=== PATIENT | female | born 1965 | race African-American/Black ===

== ENCOUNTER → 2019-11-07 | Day surgery (SDC) | payer OTHER ==
--- NOTE | 2019-11-07 20:22 | OP ---
DATE OF OPERATION: 11/07/2019 PREOPERATIVE DIAGNOSIS: Abnormal mammography. POSTOPERATIVE DIAGNOSIS: Abnormal mammography. PROCEDURE: Left stereotactic needle biopsy with clips . ANESTHESIA: Local. COMPLICATIONS: None. INDICATION: Patient brought to routine screening mammography and noted increasing microcalcifications in the upper outer left breast. A biopsy of this was recommended. Procedure was discussed with all questions answered. PROCEDURE IN DETAIL: The patient was brought to [facility] in [place], laid prone on the OR table. Using the cranial approach, calcifications in the upper outer left breast were identified. A sterile prep was obtained. A target was chosen. There was a positive stroke margin. Using Betadine and 1% lidocaine a 9-gauge Suros device was used to take several cores from this area. Cores showed calcification calcification protocol. A clip was deployed in the area. Hemostasis assured with direct pressure. Steri-Strips were used to close the incision. She tolerated the procedure well and left the breast imaging center in good condition. DANA BUSTAMANTE M.D. [id number]
--- NOTE | 2019-11-09 13:26 | PATH ---
Surgical Pathology Report Patient Name: JELANI LOERA [facility]. Rec. #: [id number] /Age/Gender: 1965 (Age: 54) / F Account: [id number] Location: [facility] Taken: 11/07/2019 Received: 11/07/2019 Reported: 11/09/2019 Physicians: Mona Daly M.D. Specimen(s) Received A: LEFT BREAST SPECIMEN - WITH CALCIFICATIONS B: LEFT BREAST SPECIMEN - WITHOUT CALCIFICATIONS Clinical History Nonpalpable lesion Mammographic findings: Microcalcification, suspicious Final Diagnosis A. BREAST, LEFT, WITH CALCIFICATIONS, STEREOTACTIC CORE BIOPSY: ATYPICAL LOBULAR HYPERPLASIA (ALH) IN A BACKGROUND OF FIBROCYSTIC CHANGES INCLUDING STROMAL FIBROSIS, MICROCYSTS, CYSTIC APOCRINE METAPLASIA, USUAL DUCTAL HYPERPLASIA, AND ASSOCIATED MICROCALCIFICATIONS. B. BREAST, LEFT, WITHOUT CALCIFICATIONS, STEREOTACTIC CORE BIOPSY: ATYPICAL LOBULAR HYPERPLASIA (ALH) IN A BACKGROUND OF FIBROCYSTIC CHANGES INCLUDING STROMAL FIBROSIS, MICROCYSTS, APOCRINE METAPLASIA, USUAL DUCTAL HYPERPLASIA, AND ASSOCIATED MICROCALCIFICATIONS. Comment: Part A and B, Immunohistochemical stains performed at [place], [place] ([id number]) and interpreted at [facility] show E-Cadherin is negative in areas with ALH. Positive and negative controls (internal if applicable) show appropriate results. Electronically Signed Jane Salgado M.D. Gross Description A. Received in formalin labeled "left breast with calcifications," are 9 alfredo-yellow, cylindrical portions of fibroadipose tissue ranging from 0.9-2.7 cm in length and averaging 0.3 cm in diameter. The specimens are submitted in toto in 3 cassettes. B. Received in formalin labeled "left breast without calcification," is a 2.3 cm in length x 0.3 cm in diameter alfredo-yellow, cylindrical portion of fibroadipose tissue. The specimen is submitted in toto in one cassette. Time to formalin fixation: 5 minutes Total formalin fixation time: Approximately 7 hours. /11/07/2019 saudi/11/07/2019
== END | disposition home or self-care (01) ==
LOC: FMAMMOTONE 08:35
PROVIDERS: ATTEND Surgery
PROC: 0HBU3ZX Excision of Left Breast, Percutaneous Approach, Diagnostic (ICD-10-PCS; principal; 2019-11-07)
DX: N60.12 Diffuse cystic mastopathy of left breast (principal); N60.32 Fibrosclerosis of left breast; N60.89 Other benign mammary dysplasias of unspecified breast; N60.82 Other benign mammary dysplasias of left breast; N64.89 Other specified disorders of breast; R92.8 Other abnormal and inconclusive findings on diagnostic imaging of breast
CPT/HCPCS: 19081; 76098-TC-FY; 87899; 88305-TC; A4648

== ENCOUNTER 2019-12-21 06:37 | Day surgery (SDC) | payer OTHER ==
[2019-12-20 15:33] VITALS: BMI 28.8
[2019-12-21] MEDS ORDERED: oxyCODONE HCL 5 MG TABLET PO PRN (08:31)
[2019-12-21] MEDS ORDERED: PROMETHAZINE HCL 25 MG/1 ML VIAL IVPUSH PRN (08:31)
[2019-12-21] MEDS ORDERED: ONDANSETRON 4 MG/2 ML VIAL IVPUSH PRN (08:31)
[2019-12-21] MEDS ORDERED: LACTATED RINGERS SOLUTION 1,000 ML IV SCH (08:45)
[2019-12-21] MEDS ORDERED: LIDOCAINE HCL 1%, 10 MG/ML (20ML VIAL) ONE ×2 (09:07→10:36)
[2019-12-21] MEDS ORDERED: PROPOFOL 20 ML ONE (10:00)
[2019-12-21] MEDS ORDERED: MIDAZOLAM HCL 2 MG/2 ML SINGLE DOSE VIAL ONE (10:00)
[2019-12-21] MEDS ORDERED: ceFAZolin SODIUM 1 GM VIAL ONE (10:02)
[2019-12-21] MEDS ORDERED: SODIUM CHLORIDE 0.9% P/F 10 ML VIAL IJ ONE (10:02)
[2019-12-21] MEDS ORDERED: LIDOCAINE HCL/PF 2% SDV 5ML VIAL ONE (10:03)
[2019-12-21] MEDS ORDERED: ceFAZolin SODIUM 1 GM VIAL IVPB ONE (10:40)
[2019-12-21] MEDS ORDERED: LIDOCAINE HCL 1%, 10 MG/ML (20ML VIAL) INF ONE (11:21)
--- NOTE | 2019-12-21 13:14 | OP ---
DATE OF OPERATION: DATE OF DICTATION: 12/21/2019 PREOPERATIVE DIAGNOSIS: Left breast atypia. POSTOPERATIVE DIAGNOSIS: Left breast atypia. PROCEDURE: A left breast wire-localized lumpectomy. SURGEON: Mona Bustamante MD ANESTHESIA: Local with IV sedation. ESTIMATED BLOOD LOSS: Minimal. COMPLICATIONS: None. This is a sterile procedure. INDICATIONS FOR PROCEDURE: The patient presented for a screening mammogram that showed calcifications in the upper left breast. A needle biopsy showed atypical lobular , fibrocystic changes, and stromal fibrosis. My recommendation was an excision of the area to make sure there is no further upgrade in the lesion. The procedure was discussed with her. PROCEDURE IN DETAIL: Patient was brought to [facility] in [place], taken to breast imaging, where a wire was used to localize the clip in the upper left breast, and then brought to the operating room. After IV sedation, IV antibiotics, the left breast was prepped in usual sterile fashion. The area in the upper left breast was anesthetized with 1% lidocaine without epinephrine. A periareolar incision was made in the upper left breast and a wire was used as a guide to get down to the area of interest. This was excised en bloc, tagged with a long stitch lateral, short stitch superior, sent for specimen radiograph. Good hemostasis assured with electrocautery. The specimen radiograph showed the clip and wire to be intact within the specimen. This was then sent to Pathology for permanent section. Once hemostasis assured, the parenchyma was approximated with interrupted 2-0 Vicryl. Skin approximated with interrupted 3-0 Vicryl and running 4-0 Prolene. A sterile dressing with Tegaderm and 4 x 4's applied. She tolerated procedure well, was taken to recovery in good condition. MONA BUSTAMANTE M.D. [id number]
[2019-12-21 13:20] VITALS: TEMP 98.2
[2019-12-21] MEDS ORDERED: oxyCODONE HCL 5 MG TABLET ONE (13:22)
[2019-12-21] MEDS ORDERED: oxyCODONE HCL 5 MG TABLET PO ONE (13:28)
[2019-12-21 14:32] VITALS: BP 144/78; PULSE 80
--- NOTE | 2019-12-25 13:06 | PATH ---
Surgical Pathology Report Patient Name: JELANI LOERA [facility]. Rec. #: [id number] /Age/Gender: 1965 (Age: 54) / F Account: [id number] Location: [facility] Taken: 12/21/2019 Received: 12/21/2019 Reported: 12/25/2019 Physicians: Mona Daly M.D. Specimen(s) Received LEFT BREAST LUMPECTOMY Clinical History ALH Final Diagnosis BREAST, LEFT, LUMPECTOMY: ATYPICAL LOBULAR HYPERPLASIA (ALH) ADJACENT PREVIOUS BIOPSY AND SURROUNDING BREAST PARENCHYMA. RADIAL SCAR ADJACENT PREVIOUS BIOPSY SITE. FIBROCYSTIC CHANGES INCLUDING STROMAL FIBROSIS, MICROCYSTS, APOCRINE METAPLASIA, COLUMNAR CELL CHANGES, LARGE ECTATIC DUCTS, AND USUAL DUCTAL HYPERPLASIA WITH ASSOCIATED MICROCALCIFICATIONS. Comment: Immunohistochemical stain performed and interpreted at [facility] show ALH is negative for E-Cadherin. Positive and negative controls (internal if applicable) show appropriate results. Electronically Signed Jane Salgado M.D. Gross Description Received fresh on an AccuGrid, labeled "left breast lumpectomy," is a 4.0 x 3.5 x 2.0 cm. alfredo-yellow, irregular, portion of fibroadipose tissue with a needle localization wire present. There is a short suture marking the superior aspect and a long suture marking the lateral aspect, per the surgeon. There is no skin or nipple present. The specimen is inked as follows: superior and lateral blue; inferior green; medial yellow; anterior red; deep black. The specimen is serially sectioned from superior to inferior. Sectioning reveals a 1.1 x 1.0 x 0.7 cm hemorrhagic previous biopsy site surrounded by white fibrous tissue. There is a joaquin metallic biopsy clip identified within the focus of hemorrhage. No definitive mass is identified. Digitizer sections are submitted in 8 cassettes as follows: [id number] and sequentially submitted previous biopsy site from superior to inferior (each with medial, lateral and deep margins); 6-anterior margin; 7-superior margin; 8-inferior margin. Time to formalin fixation: 45 minutes Total formalin fixation time: Approximately 6 hours. /12/21/2019 saudi/12/21/2019
== END 2019-12-21 14:25 | disposition home or self-care (01) ==
LOC: JASU-SURG 06:37
PROVIDERS: ATTEND Surgery
PROC: 0HBU0ZZ Excision of Left Breast, Open Approach (ICD-10-PCS; principal; 2019-12-21 10:00)
DX: N60.92 Unspecified benign mammary dysplasia of left breast (principal); N60.89 Other benign mammary dysplasias of unspecified breast; N64.89 Other specified disorders of breast; N60.32 Fibrosclerosis of left breast; L90.5 Scar conditions and fibrosis of skin
CPT/HCPCS: 19281; 76098-TC-FY; 82962; 88307-TC; 88342-TC; 94760